=== PATIENT | male | born 1940 | race Two or more races ===

== ENCOUNTER 2017-02-18 08:47 | Inpatient (IN) | payer MEDICARE, BC ==
[2017-02-18] MEDS ORDERED: SODIUM CHLORIDE 0.9% 1000 ML INFUS.BAG IV SCH (09:30)
--- NOTE | 2017-02-18 09:37 | PDOC ---
History of Present Illness - General Chief Complaint: Syncope/Near Syncope Stated Complaint: SYNCOPE/DIZZINESS Time Seen by Provider: 02/18/17 09:12 Past History - Past Medical History Allergies/Adverse Reactions: Allergies Allergy/AdvReac Type Severity Reaction Status Date / Time No Known Allergies Allergy Verified 02/18/17 09:01 - Suicide/Smoking/Psychosocial Hx Smoking History: Unknown if ever smoked *Physical Exam - Vital Signs Last Vital Signs Temp Pulse Resp BP Pulse Ox 98.6 F 78 16 148/76 100 02/18/17 09:02 02/18/17 09:02 02/18/17 09:02 02/18/17 09:02 02/18/17 09:02
[2017-02-18] MEDS ORDERED: ONDANSETRON 4 MG/2 ML VIAL IVPB ONE (09:43)
[2017-02-18] MEDS ORDERED: ONDANSETRON 4 MG/2 ML VIAL ONE ×2 (09:52→10:42)
--- NOTE | 2017-02-18 10:00 | PDOC ---
History of Present Illness - General History Source: Patient, Spouse Exam Limitations: No Limitations - History of Present Illness Initial Comments: 02/18/17 10:00 76 y/o M with a PMHx of HTN, HLD, DM presents to the ED via EMS s/p syncopal episode this morning. Patient reports current dizziness. Patients reports that about a week ago the patient had 3 mechanical falls within an hour and hit his head. Patient did not want to go to the ER at that time. Last night, reports patient felt hot to touch. This morning, was helping the patient to the bathroom when he syncopized. Positive vomiting x1 in ED. Earlier this year, the patient was admitted to a hospital in [place] for low BP and dehydration. Patient denies chest pain, SOB, headache. Denies fever, chills. Denies diarrhea. <Quiana Villar - Last Filed: 02/18/17 11:13> <Jason Miles - Last Filed: 02/18/17 11:19> - General Chief Complaint: Syncope/Near Syncope Stated Complaint: SYNCOPE/DIZZINESS Time Seen by Provider: 02/18/17 09:12 Past History <Quiana Villar - Last Filed: 02/18/17 11:13> - Suicide/Smoking/Psychosocial Hx Smoking History: Unknown if ever smoked <Jason Miles - Last Filed: 02/18/17 11:19> - Past Medical History Allergies/Adverse Reactions: Allergies Allergy/AdvReac Type Severity Reaction Status Date / Time No Known Allergies Allergy Verified 02/18/17 09:01 Home Medications: Ambulatory Orders Allopurinol [Zyloprim -] 100 mg PO DAILY 02/18/17 Alogliptin Benzoate [Alogliptin] 12.5 mg PO DAILY 02/18/17 Gabapentin [Gralise] 600 mg PO BID 02/18/17 Glimepiride [Amaryl -] 1 mg PO DAILY 02/18/17 Insulin Glargine,Hum.rec.anlog [Supriya Schroeder] 16 unit SQ DAILY 02/18/17 Metoprolol Succinate [Toprol Xl -] 25 mg PO DAILY 02/18/17 Pioglitazone HCl [Actos] 30 mg PO DAILY 02/18/17 Simvastatin [Zocor -] 40 mg PO HS 02/18/17 Valsartan [Diovan] 80 mg PO DAILY 02/18/17 Review of Systems - Review of Systems Comments:: 02/18/17 10:01 A complete review of 10 out of 10 review of systems is taken and is negative apart from what is previously mentioned below and in the HPI. <Quiana Villar - Last Filed: 02/18/17 11:13> *Physical Exam - Vital Signs Last Vital Signs Temp Pulse Resp BP Pulse Ox 98.6 F 78 16 148/76 100 02/18/17 09:02 02/18/17 09:02 02/18/17 09:02 02/18/17 09:02 02/18/17 09:02 - Physical Exam Comments: 02/18/17 10:01 Vitals: Triage Vital signs reviewed General Appearance: no acute distress, well nourished well developed Head: Atraumatic Eyes: Pupils equal reactive round, extraocular movement intact Neck: Supple; No Nucal rigidity Chest Wall: Nontender Cardiac: Regular rate and rhythm, no murmurs, no rubs, no gallops, Lungs: Clear to auscultation bilateral, good air movement bilaterally Abdomen: Soft, non distended, normal bowel sounds, non tender to palpation Extremities: Full range of motion to all extremities, no cyanosis, clubbing, or edema Skin: Warm and dry, no rashes or lesions, no rash, no petechiae Neuro: AOX3; Cranial Nerves 2-12 grossly intact, Strength intact to all extremities, Sensation intact to all extremities, dizzy with change in position Psych: normal mood, normal affect <Quiana Villar - Last Filed: 02/18/17 11:13> - Vital Signs Last Vital Signs Temp Pulse Resp BP Pulse Ox 98.6 F 78 16 148/76 100 02/18/17 09:02 02/18/17 09:02 02/18/17 09:02 02/18/17 09:02 02/18/17 09:02 <Jason Miles - Last Filed: 02/18/17 11:19> Heart Score/ECG Review #1 02/18/17 10:05 EKG performed at 9:23 demonstrates rate of 79, rhythm of sinus, axis normal with LBBB. No T wave inversions, no ST elevations. <Quiana Villar - Last Filed: 02/18/17 11:13> ED Treatment Course - LABORATORY CBC & Chemistry Diagram: 02/18/17 10:00 02/18/17 10:00 - ADDITIONAL ORDERS Additional order review: Laboratory Results 02/18/17 09:27 POC Glucometer [id number] 02/18/17 09:27 POC Glucometer [id number] - RADIOLOGY Radiograph Interpretation: 02/18/17 10:[address] reported by Dr. Jose D Martines Impression: No CT evidence of acute intracranial pathology. Chest X-Ray reported by Dr. Ryan Whitaker Impression: No evidence of active pulmonary disease. <Quiana Villar - Last Filed: 02/18/17 11:13> - LABORATORY CBC & Chemistry Diagram: 02/18/17 10:00 02/18/17 10:00 - ADDITIONAL ORDERS Additional order review: Laboratory Results 02/18/17 09:27 POC Glucometer [id number] 02/18/17 09:27 POC Glucometer [id number] - RADIOLOGY Radiology Studies Ordered: Category Date Time Status HEAD CT (STROKE) [CT] Stat CT Scan 02/18/17 09:29 Taken CHEST X-RAY PORTABLE* [RAD] Stat Radiology 02/18/17 09:13 Completed <Jason Miles - Last Filed: 02/18/17 11:19> Medical Decision Making - Medical Decision Making 02/18/17 10:[address] Kingtson. [phone] 02/18/17 11:[address] Kingston, who will see patient and order MRI. <Quiana Villar - Last Filed: 02/18/17 11:13> - Medical Decision Making 02/18/17 11:17 76 years old with past medical history significant for hypertension diabetes high cholesterol 3 falls last week on Wednesday presents to the ED today with persistent vertigo not alleviated by rest In the emergency department labs head CT vital signs all stable despite IV fluids and Zofran and meclizine patient remains symptomatic even at rest given age and comorbidities will need observation for neurologic consultation MRI brain MRA head and neck to rule out posterior circulation/vertebral neurologic pathology <Jason Miles - Last Filed: 02/18/17 11:19> *DC/Admit/Observation/Transfer - Attestations Scribe Attestion: 02/18/17 10:02 Documentation prepared by Quiana Villar, acting as medical equipment repair technician for Jason Miles MD. <Quiana Villar - Last Filed: 02/18/17 11:13> - Discharge Dispostion Admit: Yes <Jason Miles - Last Filed: 02/18/17 11:19> Diagnosis at time of Disposition: Vertigo - Referrals Referrals: STAFF,NOT ON [Primary Care Provider] -
[2017-02-18 10:31] LABS: BASOPHIL 0.6 % (0-2.0); MCH 27.2 pg (25.7-33.7); MCHC 32.4 g/dl (32.0-35.9); MEAN CELL VOLUME 83.8 fl (80-96); PLATELET COUNT 305 K/MM3 (134-434); RDW 14.4 % (11.9-15.9); WHITE BLOOD COUNT 9.6 K/mm3 (4.0-10.0)
[2017-02-18 10:44] LABS: INR 1.35 (0.82-1.09); PROTHROMBIN TIME (PATIENT) 15.3 SEC (9.98-11.88)
[2017-02-18] MEDS ORDERED: MECLIZINE HCL 25 MG TABLET (FP) PO ONE (10:45)
[2017-02-18] MEDS ORDERED: MECLIZINE HCL 25 MG TABLET (FP) ONE (10:52)
[2017-02-18 10:57] LABS: ALBUMIN 3.2 g/dl (3.4-5.0); ANION GAP 11 (8-16); BILIRUBIN,TOTAL 0.9 mg/dL (0.2-1.0); CALCIUM 8.9 mg/dL (8.5-10.1); CO2 25 mmol/L (21-32); CREATININE 1.2 mg/dL (0.7-1.3); GLUCOSE,RANDOM 178 mg/dL (74-106); MAGNESIUM 1.9 mg/dL (1.8-2.4); SGOT/AST 10 U/L (15-37); SGPT/ALT 19 U/L (12-78); TOT PROT 6.5 g/dl (6.4-8.2)
[2017-02-18 11:00] LABS: ALK PHOS 88 U/L (45-117); CPK 64 IU/L (39-308); TROPONIN I < 0.02 ng/ml (0.00-0.05)
[2017-02-18] MEDS: VALSARTAN 80 MG TABLET (UD) PO SCH (14:48)
--- NOTE | 2017-02-18 14:56 | HP ---
CHIEF COMPLAINT: Right knee weakness, right foot pain PCP: [place] HISTORY OF PRESENT ILLNESS: 76 year-old male with a PMH significant for HTN, HLD, and IDDM, presented to the ED after experiencing weakness in his right leg this morning. Patient is a resident of [place]. One week ago he flew from [place] to [place], a 2.5 hour flight, followed by a 1-hour car trip. While visiting family, patient took a walk outdoors at night in a poorly lit area wearing flip flops. He tripped and fell twice (witnessed by his son) and both times struck his right knee, right foot, right toe. He returned to the house and was walking into the kitchen and missed a step. He fell for the third time, again a mechanical fall witnessed by family members. Following the three falls patient has had pain in his right foot with weight-bearing. He did not seek medical attention. Three days ago, the patient drove from [place] to [place], a 2.5 hour car trip. This morning, as patient got up to go to the bathroom, his right knee "buckled" and he went down to the floor. Patient was awake the entire time. He did not pass out. He was not dizzy or lightheaded. There was no syncope or near syncope. Patient denies chest pain, palpitations, SOB, OAKES, orthopnea, or lower extremity edema. He denies any history of blood clots. He denies headache, n/v/d /c. He denies fever, sweats, chills. At no time does patient report striking his head or losing consciousness. ER course was notable for: (1) CT head: unremarkable for acute process Recent Travel: Yes, as above PAST MEDICAL HISTORY: Hypertension Hyperlipidemia IDDM PAST SURGICAL HISTORY: Social History: Smoking: Alcohol: Drugs: Family History: Allergies No Known Allergies Allergy (Verified 02/18/17 09:01) HOME MEDICATIONS: Home Medications Medication Instructions Recorded Allopurinol [Zyloprim -] 100 mg PO DAILY 02/18/17 Alogliptin Benzoate [Alogliptin] 12.5 mg PO DAILY 02/18/17 Gabapentin [Gralise] 600 mg PO BID 02/18/17 Glimepiride [Amaryl -] 1 mg PO DAILY 02/18/17 Insulin Glargine,Hum.rec.anlog 16 unit SQ DAILY 02/18/17 [Supriya Schroeder] Metoprolol Succinate [Toprol Xl -] 25 mg PO DAILY 02/18/17 Pioglitazone HCl [Actos] 30 mg PO DAILY 02/18/17 Simvastatin [Zocor -] 40 mg PO HS 02/18/17 Valsartan [Diovan] 80 mg PO DAILY 02/18/17 REVIEW OF SYSTEMS CONSTITUTIONAL: Absent: fever, chills, diaphoresis, generalized weakness, malaise, loss of appetite, weight change HEENT: Absent: rhinorrhea, nasal congestion, throat pain, throat swelling, difficulty swallowing, mouth swelling, ear pain, eye pain, visual changes CARDIOVASCULAR: Absent: chest pain, syncope, palpitations, irregular heart rate, lightheadedness , peripheral edema RESPIRATORY: Absent: cough, shortness of breath, dyspnea with exertion, orthopnea, wheezing, stridor, hemoptysis GASTROINTESTINAL: Absent: abdominal pain, abdominal distension, nausea, vomiting, diarrhea, constipation, melena, hematochezia GENITOURINARY: Absent: dysuria, frequency, urgency, hesitancy, hematuria, flank pain, genital pain MUSCULOSKELETAL: Present: right knee pain, right foot pain s/p falls Absent: myalgia, arthralgia, joint swelling, back pain, neck pain SKIN: Absent: rash, itching, pallor HEMATOLOGIC/IMMUNOLOGIC: Absent: easy bleeding, easy bruising, lymphadenopathy, frequent infections ENDOCRINE: Absent: unexplained weight gain, unexplained weight loss, heat intolerance, cold intolerance NEUROLOGIC: Absent: headache, focal weakness or paresthesias, dizziness, unsteady gait, seizure, mental status changes, bladder or bowel incontinence PSYCHIATRIC: Absent: anxiety, depression, suicidal or homicidal ideation, hallucinations. PHYSICAL EXAMINATION Vital Signs - 24 hr 02/18/17 11:41 Pulse Rate [ 72 Apical] Respiratory 16 Rate Blood Pressure 147/72 [Left Arm] O2 Sat by Pulse 98 Oximetry (%) GENERAL: Awake, alert, and fully oriented, in no acute distress. HEAD: Normal with no signs of trauma. EYES: Pupils equal, round and reactive to light, extraocular movements intact, sclera anicteric, conjunctiva clear. No ptosis. EARS, NOSE, THROAT: Ears normal, nares patent, oropharynx clear without exudates. Moist mucous membranes. NECK: Normal range of motion, supple without lymphadenopathy, JVD, or masses. LUNGS: Breath sounds equal, clear to auscultation bilaterally. No wheezes, and no crackles. No accessory muscle use. HEART: Regular rate and rhythm, normal S1 and S2 without murmur, rub or gallop. ABDOMEN: Soft, nontender, not distended, normoactive bowel sounds, no guarding, no rebound, no masses. No hepatomegaly or splenomegaly. MUSCULOSKELETAL: Normal range of motion at all joints. No bony deformities or tenderness. No CVA tenderness. UPPER EXTREMITIES: 2+ pulses, warm, well-perfused. No cyanosis. No clubbing. No peripheral edema. LOWER EXTREMITIES: Right patella hypermobility; RLE 1+ edema from knee to toes; LLE no edema; both extremities warm, well-perfused. No calf tenderness. NEUROLOGICAL: Cranial nerves II-XII intact. Normal speech. Gait not observed. ASSESSMENT/PLAN: 76 year-old male with a PMH significant for HTN, HLD, and IDDM. Presents with pain to right knee and right foot s/p mechanical falls and with one episode of right knee weakness. Right lower extremity pain and weakness --s/p three mechanical falls --patellar hypermobility on exam --ordered xrays right knee, tib/fib, ankle/foot RLE edema and pain --in setting of recent prolonged travel --US b/l LEs pending Hypertension --continue valsartan, Toprol XL Hyperlipidemia --continue statin IDDM --Levemir 10U BID --Novolog sliding scale coverage F/E/N Fluids: PO intake adequate Electrolytes: replete as indicated Nutrition: diabetic, low sodium DVT prophylaxis: subq heparin Physical therapy eval Dispo: requires continued observation. Full code. Visit type - Emergency Visit Emergency Visit: Yes ED Registration Date: 02/18/17 Care time: The patient presented to the Emergency Department on the above date and was hospitalized for further evaluation of their emergent condition. - New Patient This patient is new to me today: Yes Date on this admission: 02/18/17 - Critical Care Critical Care patient: No
--- NOTE | 2017-02-18 14:57 | EKG ---
Test Reason : Blood Pressure : / mmHG Vent. Rate : 079 BPM Atrial Rate : 079 BPM P-R Int : 164 ms QRS Dur : 150 ms QT Int : 426 ms P-R-T Axes : 062 005 129 degrees QTc Int : 488 ms SINUS RHYTHM WITH OCCASIONAL PREMATURE VENTRICULAR COMPLEXES LEFT BUNDLE BRANCH BLOCK ABNORMAL ECG NO PREVIOUS ECGS AVAILABLE Confirmed by COLBY DELGADILLO MD ([id number]) on 02/18/2017 2:57:10 PM Referred By: Confirmed By:COLBY DELGADILLO MD
[2017-02-18] MEDS ORDERED: ASPIRIN 325 MG ENTERIC COATED TABLET (FP) PO ONE (15:00)
[2017-02-18] MEDS ORDERED: ASPIRIN 325 MG TABLET ONE (15:23)
--- NOTE | 2017-02-18 16:12 | CON.CARD ---
Cardiology Consult (text) - Consultation Consultation Note: 76 y/o M with a PMHx of HTN, HLD, DM presents to the ED via EMS s/p syncopal episode this morning. Patient reports current dizziness. Patients reports that about a week ago the patient had 3 mechanical falls within an hour and hit his head. Patient did not want to go to the ER at that time. Last night, reports patient felt hot to touch. This morning, was helping the patient to the bathroom when he syncopized. Positive vomiting x1 in ED. Earlier this year, the patient was admitted to a hospital in [place] for low BP and dehydration. Patient denies chest pain, SOB, headache. Denies fever, chills. Denies diarrhea. Ambulatory Orders Allopurinol [Zyloprim -] 100 mg PO DAILY 02/18/17 Alogliptin Benzoate [Alogliptin] 12.5 mg PO DAILY 02/18/17 Gabapentin [Gralise] 600 mg PO BID 02/18/17 Glimepiride [Amaryl -] 1 mg PO DAILY 02/18/17 Insulin Glargine,Hum.rec.anlog [Tousrinatho Solostar] 16 unit SQ DAILY 02/18/17 Metoprolol Succinate [Toprol Xl -] 25 mg PO DAILY 02/18/17 Pioglitazone HCl [Actos] 30 mg PO DAILY 02/18/17 Simvastatin [Zocor -] 40 mg PO HS 02/18/17 Valsartan [Diovan] 80 mg PO DAILY 02/18/17 Current Medications Allopurinol (Zyloprim -) 100 mg PO DAILY [facility] Atorvastatin Calcium (Lipitor -) 80 mg PO HS [facility] Gabapentin (Neurontin -) 600 mg PO BID [facility] Heparin Sodium (Porcine) (Heparin -) 5,000 unit SQ TID [facility] Insulin Aspart (Novolog Vial Sliding Scale -) 1 vial SQ ACHS [facility] PRN Reason: Protocol Insulin Detemir (Levemir Vial) 10 units SQ BID@0700,2200 [facility] Metoprolol Succinate (Toprol Xl -) 25 mg PO DAILY [facility] Valsartan (Diovan -) 80 mg PO DAILY [facility] Last Admin: 02/18/17 14:48 Dose: 80 mg Vital Signs - 24 hr 02/18/17 02/18/17 02/18/17 09:00 09:02 09:50 Temperature 98.6 F Pulse Rate 78 Pulse Rate [ Apical] Pulse Rate [ 79 Left side Sitting] Pulse Rate [ 90 Left side Standing] Pulse Rate [ 72 Left side Supine] Respiratory 16 Rate Blood Pressure 148/76 Blood Pressure [Left Arm] Blood Pressure 104/82 [Left side Sitting] Blood Pressure 162/81 [Left side Standing] Blood Pressure 74/39 [Left side Supine] O2 Sat by Pulse 100 99 Oximetry (%) 02/18/17 02/18/17 11:41 15:47 Temperature Pulse Rate Pulse Rate [ 72 95 H Apical] Pulse Rate [ Left side Sitting] Pulse Rate [ Left side Standing] Pulse Rate [ Left side Supine] Respiratory 16 16 Rate Blood Pressure Blood Pressure 147/72 142/58 [Left Arm] Blood Pressure [Left side Sitting] Blood Pressure [Left side Standing] Blood Pressure [Left side Supine] O2 Sat by Pulse 98 95 Oximetry (%) Intake & Output 02/16/17 02/17/17 02/18/17 02/19/17 07:59 07:59 07:59 07:59 Intake Total 2803 Balance 2803 Weight 206 lb CBC, BMP 02/18/17 10:00 02/18/17 10:00 Laboratory Tests 02/18/17 02/18/17 02/18/17 10:00 10:00 10:00 INR 1.35 H Lactic Acid 1.0 Magnesium 1.9 Total Bilirubin 0.9 AST 10 L Alkaline Phosphatase 88 Troponin I < 0.02 Albumin 3.2 L
[2017-02-18] MEDS: INSULIN SLIDING SCALE (NOVOLOG) 1 VIAL SQ SCH ×2 (17:01→22:01)
--- NOTE | 2017-02-18 17:31 | CON.NEURO ---
Consult - Smoking History Smoking history: Unknown if ever smoked Home Medications - Allergies Allergies/Adverse Reactions: Allergies Allergy/AdvReac Type Severity Reaction Status Date / Time No Known Allergies Allergy Verified 02/18/17 09:01 - Home Medications Home Medications: Ambulatory Orders Allopurinol [Zyloprim -] 100 mg PO DAILY 02/18/17 Alogliptin Benzoate [Alogliptin] 12.5 mg PO DAILY 02/18/17 Gabapentin [Gralise] 600 mg PO BID 02/18/17 Glimepiride [Amaryl -] 1 mg PO DAILY 02/18/17 Insulin Glargine,Hum.rec.anlog [Toujeo Solostar] 16 unit SQ DAILY 02/18/17 Metoprolol Succinate [Toprol Xl -] 25 mg PO DAILY 02/18/17 Pioglitazone HCl [Actos] 30 mg PO DAILY 02/18/17 Simvastatin [Zocor -] 40 mg PO HS 02/18/17 Valsartan [Diovan] 80 mg PO DAILY 02/18/17 Physical Exam-Neuro Vital Signs: Vital Signs Temperature 98.6 F 02/18/17 09:02 Pulse Rate 95 H 02/18/17 15:47 Respiratory Rate 16 02/18/17 15:47 Blood Pressure 142/58 02/18/17 15:47 O2 Sat by Pulse Oximetry (%) 95 02/18/17 15:47 Labs: INR, PTT INR 1.35 (0.82-1.09) H 02/18/17 10:00 Assessment/Plan cc episode of passing out and feeling vertigo sensation whole morning today 76 year old male history of dm, htn hyperlipidemia. He lives in [place] and [place] and recently were in [place]. He felt that his leg were giving out and he passed out. He was did not complain of hitting his head. He denies any weakness, dysphagia , dysarthria or diplopia. Patient also complain of right leg edema and knee swelling after a fall. He has history of low back pain but he denies any worsening of back pain recently. His felt that he passed out and he was confused whole morning and now after three hours being in hospital . He is back to himself. PAST MEDICAL HISTORY: Hypertension Hyperlipidemia IDDM HOME MEDICATIONS: Home Medications Medication Instructions Recorded Allopurinol [Zyloprim -] 100 mg PO DAILY 02/18/17 Alogliptin Benzoate [Alogliptin] 12.5 mg PO DAILY 02/18/17 Gabapentin [Gralise] 600 mg PO BID 02/18/17 Glimepiride [Amaryl -] 1 mg PO DAILY 02/18/17 Insulin Glargine,Hum.rec.anlog 16 unit SQ DAILY 02/18/17 [Toujedeisi Solostar] Metoprolol Succinate [Toprol Xl -] 25 mg PO DAILY 02/18/17 Pioglitazone HCl [Actos] 30 mg PO DAILY 02/18/17 Simvastatin [Zocor -] 40 mg PO HS 02/18/17 Valsartan [Diovan] 80 mg PO DAILY 02/18/17 REVIEW OF SYSTEMS reviewed in chart Neurological Examination Alert and oriented x 3 he is hard of hearing eomi and no face asymmetry , pupils are reactive there is right knee swelling seen there is pain on moving right knee and limited exam but no obvious weakness no sensory loss reflex are diminished generalized Assessment- Episode of fall and one episode of syncope ? unlikely to seizures or stroke Plan --would do mri to rule out cerebellar lesion and stroke -- Physical Therapy for vestibular rehab --- Tele for possible syncope work up Thanks for consult Marshall Kingston MD
[2017-02-18] MEDS ORDERED: LORazepam 2 MG/ML SDV VIAL IVPUSH ONE (19:46)
[2017-02-18] MEDS ORDERED: ATORVASTATIN CA 80 MG TABLET (FP) PO SCH (22:00)
[2017-02-18] MEDS: HEPARIN NA (PORCINE) 5,000 UNITS/ML 1ML VIAL SQ SCH (22:00)
[2017-02-18] MEDS: ATORVASTATIN CA 40 MG TABLET (FP) PO SCH (22:00)
[2017-02-18] MEDS: GABAPENTIN 300 MG CAPSULE (FP) PO SCH (22:00)
[2017-02-18] MEDS: INSULIN DETEMIR 100 UNITS/ML MDV SQ SCH (22:01)
[2017-02-19 01:06] VITALS: BMI 29.7
[2017-02-19] MEDS: INSULIN DETEMIR 100 UNITS/ML MDV SQ SCH ×2 (06:26→22:22)
[2017-02-19] MEDS: INSULIN SLIDING SCALE (NOVOLOG) 1 VIAL SQ SCH ×4 (06:26→22:22)
[2017-02-19] MEDS: HEPARIN NA (PORCINE) 5,000 UNITS/ML 1ML VIAL SQ SCH (06:26)
[2017-02-19 07:37] LABS: INR 1.24 (0.82-1.09)
[2017-02-19 07:38] LABS: ACTIVATED PTT 28.8 SECONDS (26.9-34.4)
[2017-02-19 08:04] LABS: EOSINOPHIL 1.9 % (0-4.5); MCH 27.4 pg (25.7-33.7); MCHC 32.7 g/dl (32.0-35.9); MEAN CELL VOLUME 83.8 fl (80-96); NEUTROPHILS 66.1 % (42.8-82.8); PLATELET COUNT 291 K/MM3 (134-434); RDW 14.2 % (11.9-15.9); WHITE BLOOD COUNT 9.3 K/mm3 (4.0-10.0)
[2017-02-19] MEDS ORDERED: LORazepam 2 MG/ML SDV VIAL ONE (08:31)
[2017-02-19] MEDS: METOPROLOL SUCCINATE 25 MG TAB.SR.24H (FP) PO SCH (09:48)
[2017-02-19] MEDS: GABAPENTIN 300 MG CAPSULE (FP) PO SCH ×2 (09:48→22:22)
[2017-02-19] MEDS: VALSARTAN 80 MG TABLET (UD) PO SCH (09:48)
[2017-02-19] MEDS: ALLOPURINOL 100 MG TABLET (FP) PO SCH (09:48)
[2017-02-19] MEDS ORDERED: FLU VACCINE QUAD 60 MCG/0.5 ML (MDV 17-18) IM ONE (10:00)
--- NOTE | 2017-02-19 10:33 | PN ---
Physical Exam: SUBJECTIVE: Patient seen and examined at the bedside. Informed by primary nurse that patient has a positive MRI. 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 Kingston who advised neurosurgery to be called Called placed into Dr. Sukumar Figueroa office [phone] who is currently in surgery, awaiting call back Stroke protocol in place 1349: Call back received from Dr. Figueroa, case discussed. Brain MRI reviewed. As per MD, patient is not a surgical candidate. Vital Signs Period Temp Pulse Resp BP Sys/Baker Pulse Ox Last 24 Hr 97.4 F-100.3 F 72-95 16-20 116-147/54-77 94-98 GENERAL: The patient is awake, alert, and fully oriented, in no acute distress. HEAD: Normal with no signs of trauma. EYES: PERRL, extraocular movements intact, sclera anicteric, conjunctiva clear. No ptosis. ENT: Ears normal, nares patent, oropharynx clear without exudates, moist mucous membranes. NECK: Trachea midline, full range of motion, supple. LUNGS: Breath sounds equal, clear to auscultation bilaterally, no wheezes, no crackles, no accessory muscle use. HEART: Regular rate and rhythm ABDOMEN: Soft, nontender, nondistended, normoactive bowel sounds, no guarding, no rebound, no hepatosplenomegaly, no masses. NEUROLOGICAL: slurred speech, left sided upper weakness 4/5 PSYCH: Normal mood, normal affect. LOWER EXT: pain to right knee and right foot s/p mechanical falls and with one episode of right knee weakness s/p multiple falls at home Laboratory Results - last 24 hr 02/18/17 02/18/17 02/18/17 19:45 21:40 21:54 WBC RBC Hgb Hct MCV MCH MCHC RDW Plt Count MPV Neutrophils % Lymphocytes % Monocytes % Eosinophils % Basophils % PT with INR INR PTT (Actin FS) POC Glucometer 253 Troponin I < 0.02 Cancelled 02/19/17 02/19/17 02/19/17 05:55 06:45 06:45 WBC 9.3 RBC 3.94 L Hgb 10.8 L Hct 33.0 L MCV 83.8 MCH 27.4 MCHC 32.7 RDW 14.2 Plt Count 291 MPV 8.0 Neutrophils % 66.1 Lymphocytes % 22.6 D Monocytes % 8.4 Eosinophils % 1.9 D Basophils % 1.0 PT with INR 14.00 H INR 1.24 H PTT (Actin FS) 28.8 POC Glucometer 104 Troponin I Active Medications Generic Name Dose Route Start Last Admin Trade Name Guy PRN Reason Stop Dose Admin Allopurinol 100 mg 02/19/17 10:00 02/19/17 09:48 Zyloprim - PO 100 mg DAILY HAILE Administration Atorvastatin Calcium 40 mg 02/18/17 22:00 02/18/17 22:00 Lipitor - PO 40 mg HS HAILE Administration Gabapentin 600 mg 02/18/17 22:00 02/19/17 09:48 Neurontin - PO 600 mg BID HAILE Administration Insulin Aspart 1 vial 02/18/17 16:30 02/19/17 06:26 Novolog Vial Sliding Scale - SQ Not Given ACHS [facility] Protocol Insulin Detemir 10 units 02/18/17 22:00 02/19/17 06:26 Levemir Vial SQ Not Given BID@0700,2200 HAILE Lorazepam 2 mg 02/19/17 12:00 Ativan Injection - IVPUSH 02/19/17 12:01 ONCE ONE Metoprolol Succinate 25 mg 02/19/17 10:00 02/19/17 09:48 Toprol Xl - PO 25 mg DAILY HAILE Administration Valsartan 80 mg 02/18/17 14:15 02/19/17 09:48 Diovan - PO 80 mg DAILY HAILE Administration ASSESSMENT/PLAN: Patient is a76 year old with a significant past medical history of hypertension , hyperlipidemia and diabetes mellitus. He was brought into the ED after experiencing weakness in his right leg. Patient was reported to have fallen multiple times at home without any LOC, dizziness or lightheadedness. No syncope or near syncope reported. Patient denies chest pain, palpitations, SOB , OAKES, orthopnea, or lower extremity edema. He denies headache, nausea or vomiting. He denies fever, sweats, chills. Patient denies hitting his head or losing consciousness with the multiple falls. Brain MRI 02/19/2017: acute 4 x 1.3 cm right cerebeller uziel infarct noted superiorly with trace amt of Neurology: Acute right cerebeller infarct, as shown on above brain MRI Stroke protocol initiated Swallow eval ordered, lipid panel, will hold off on ASA since for petechial blood is seen on brain MRI, will start ASA as per neuro Heparin on hold secondary to acute petechial blood on MRI Physical therapy ordered, Swallow and speech evaluation Spoke to neurosurgery who reviewed Brain MRI, no surgical interventions Monitor and control blood pressures in the setting of acute cerebellar infarct Carotid ultrasound and echo ordered On Lipitor 40mg daily Cardiology consulted Cardiology: Hypertension, chronic Control BP in setting of acute cerebellar infarct On compliance monitor On Metoprolol 25mg daily, Diovan 80mg daily ASA start as per neurology Endocrine: Diabetes Mellitus, chronin Monitor BGMs, Hmga1c in a.m. Dysphagia diabetic diet F.E.N. Fluids: Tolerating PO, swallow eval Electrolytes: monitor Nutrition, dysphagia Prophylaxis DVT: SCD GI: Protonix Disposition. Will need to be converted to inpatient status for his acute emergency condition. full code. Visit type - Emergency Visit Emergency Visit: Yes ED Registration Date: 02/19/17 Care time: The patient presented to the Emergency Department on the above date and was hospitalized for further evaluation of their emergent condition. - New Patient This patient is new to me today: Yes Date on this admission: 02/19/17 - Critical Care Critical Care patient: No - Discharge Referral Referred to [facility] Med P.C.: No
[2017-02-19 11:44] LABS: ANION GAP 5 (8-16); CO2 29 mmol/L (22-28); CREATININE 1.4 mg/dl (0.6-1.3); GLUCOSE,RANDOM 104 mg/dl (74-106); TOT PROT 6.1 g/dl (6.4-8.3)
[2017-02-19 11:45] LABS: ALBUMIN 2.8 g/dl (3.5-5.0); ALK PHOS 83 U/L (32-92); BILIRUBIN,TOTAL 0.6 mg/dl (0.2-1.0); SGOT/AST 13 U/L (10-42); SGPT/ALT 18 U/L (10-40)
--- NOTE | 2017-02-19 11:54 | CONSULT ---
Admitting History and Physical - Primary Care Physician PCP: Marlene Brar - Admission History of Present Illness: Pt admitted following multple mechanical falls, with vertigo. 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 Pt with h/o severely HOOPA, bilaterally aided, with excellent speech production. History Source: Patient, Medical Record Limitations to Obtaining History: No Limitations, Other (HOOPA. 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 Congenital.), Both Hearing Aide: Yes With Patient: Yes Speech Evaluation - Communication Primary Language: MALAY Communication: Yes: Within Normal Limits, Hearing Deficit Oral Expression Ability: Yes: No Impairment - Speech Production Able to Make Needs Known: Yes: WNL Intelligibility: Yes: WNL - Speech Characteristics Voice Loudness: Normal Voice Pitch: Yes: Mildly High (likely secondary to hearing deficit) Voice Phonatory-based Quality: Yes: Normal Speech Pattern: Normal Speech Clarity: < 100% Nasal Resonance: Normal Articulation: Yes: Precise - Language/Auditory Comprehension Follows: Yes: 2 Stage Simple Commands Observation: Benefits from Slow Speech: Yes (Allow pt to see your face/lips, while speaking slowly for best communication.), Benefits from Increased Volume of Speech: Yes - Language/Verbal Expression Able to Respond to Simple Queries: Yes: WNL Able to Communicate Wants and Needs: Yes: WNL Functional Communication Status: Yes: WNL - 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 Memory: Yes: WNL Short Term Memory: Yes: WNL - Swallow Evaluation/Bedside Assessment Current Nutritional Intake: Regular (Pt reports he is receiving "mushy" food.) Oral Secretions: Yes: WFL Dentition: Yes: Adequate Facial Symmetry at Rest: Facial Droop Right (mild) Facial Symmetry on Retraction: Symmetrical Facial Movement: Controlled Against Resistance Opening: Normal Against Resistance Closing: Normal Pucker Lips: Normal Smile: Normal Lingual Movement: Normal, Symmetric Lingual Speed of Movement: Normal Lingual Movement Strgth Against Opposition: Normal Lingual Movement Characteristics: Normal Velopharyngeal Movement: Normal Laryngeal Elevation: WFL Laryngeal Movement: Able to Palpate Rate of Intake: WFL Bolus Size: WFL Labial Seal: WFL Chewing: WFL Oral Prep Time: WFL A-P Transit: WFL Pocketing: None Timing of Swallow: WFL Coughing/Throat Clear: No Change in Voice: No Recommendations - Speech Evaluation, Impression/Plan Impression: Speech production at baseline. No ataxic dysarthria noted. 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 Excellent ability to lip read. Swallowing overtly intact. - Disposition Discharge to: [facility] - Dysphagia Impressions/Plan Swallowing Skills: WFL Dysphagia Impressions: No Impairment *Silent aspiration: cannot be R/O at bedside Recommendations: Other (Allow pt to see your face/lips, while speaking slowly for best communication, to maximize lip reading skills.) - Recommendations Diet Consistency: Regular Medication Administration: Whole with water Liquids: Thin Liquids
[2017-02-19 12:02] LABS: CHOLESTEROL 96 mg/dL (50-200)
--- NOTE | 2017-02-19 15:09 | PN ---
Progress Note (short form) - Note Progress Note: cc episode of passing out and feeling vertigo sensation whole morning today 76 year old male history of dm, htn hyperlipidemia. He lives in [place] and visiting [place] and recently were in [place]. He felt that his leg were giving out and he passed out. He was did not complain of hitting his head. He denies any weakness, dysphagia , dysarthria or diplopia. Patient also complain of right leg edema and knee swelling after a fall. He has history of low back pain but he denies any worsening of back pain recently. His felt that he passed out and he was confused whole morning and now after three hours being in hospital . he had mri of brain showed right cerebellar stroke and small petechial hemorrhage was seen PAST MEDICAL HISTORY: Hypertension Hyperlipidemia IDDM Neurological Examination Alert and oriented x 3 he is hard of hearing eomi and no face asymmetry , pupils are reactive there is right knee swelling seen there is pain on moving right knee and limited exam but no obvious weakness no sensory loss there is mild dysmetria seen on right upper extremity ( ftn testing reflex are diminished generalized Assessment- Right cerebellar stroke with small petechial hemrrhage, bp under control and no evidence of raised ICT Plan --hold aspirin due to petchial hemorrhage - hold sq heparin and use EDWAR instead -carotid ultrasound adn echo, continue tele monitoring stroke education continue statin bp medication , bp is stable PT , Speech therapy consult appreciated. continue to follow ,please feel free to call me if you have any question Marshall Kingston MD
[2017-02-19] MEDS: ATORVASTATIN CA 40 MG TABLET (FP) PO SCH (22:22)
[2017-02-20] MEDS: INSULIN SLIDING SCALE (NOVOLOG) 1 VIAL SQ SCH ×4 (06:38→21:49)
[2017-02-20] MEDS: INSULIN DETEMIR 100 UNITS/ML MDV SQ SCH ×2 (06:44→21:48)
[2017-02-20 07:47] LABS: BASOPHIL 1.2 % (0-2.0); EOSINOPHIL 4.3 % (0-4.5); MCH 27.8 pg (25.7-33.7); MCHC 32.9 g/dl (32.0-35.9); MEAN CELL VOLUME 84.5 fl (80-96); MEAN PLT VOLUME 8.5 fl (7.5-11.1); NEUTROPHILS 63.6 % (42.8-82.8); PLATELET COUNT 304 K/MM3 (134-434); RDW 13.8 % (11.9-15.9); WHITE BLOOD COUNT 7.4 K/mm3 (4.0-10.0)
[2017-02-20 08:34] LABS: ALBUMIN 2.8 g/dl (3.4-5.0); ALK PHOS 80 U/L (45-117); ANION GAP 8 (8-16); BILIRUBIN,TOTAL 0.7 mg/dL (0.2-1.0); CALCIUM 8.8 mg/dL (8.5-10.1); CO2 25 mmol/L (21-32); CREATININE 1.2 mg/dL (0.7-1.3); GLUCOSE,RANDOM 120 mg/dL (74-106); MAGNESIUM 1.9 mg/dL (1.8-2.4); SGOT/AST 16 U/L (15-37); SGPT/ALT 20 U/L (12-78)
[2017-02-20] MEDS: GABAPENTIN 300 MG CAPSULE (FP) PO SCH ×2 (09:18→21:48)
[2017-02-20] MEDS: METOPROLOL SUCCINATE 25 MG TAB.SR.24H (FP) PO SCH (09:18)
[2017-02-20] MEDS: ALLOPURINOL 100 MG TABLET (FP) PO SCH (09:18)
[2017-02-20] MEDS: VALSARTAN 80 MG TABLET (UD) PO SCH (09:18)
--- NOTE | 2017-02-20 10:28 | PN ---
Progress Note (short form) - Note Progress Note: episode of passing out and feeling vertigo sensation whole morning today 76 year old male history of dm, htn hyperlipidemia. He lives in [place] and visiting [place] and recently were in [place]. He felt that his leg were giving out and he passed out. He was did not complain of hitting his head. He denies any weakness, dysphagia , dysarthria or diplopia. Patient also complain of right leg edema and knee swelling after a fall. He has history of low back pain but he denies any worsening of back pain recently. His felt that he passed out and he was confused whole morning and now after three hours being in hospital . he had mri of brain showed right cerebellar stroke and small petechial hemorrhage was seen . he has bene stable no new complain and had carotid ultrasound done today. PAST MEDICAL HISTORY: Hypertension Hyperlipidemia IDDM Neurological Examination Alert and oriented x 3 he is have hearing difficulty eomi and no face asymmetry , pupils are reactive there is right knee swelling seen there is pain on moving right knee and limited exam but no obvious weakness no sensory loss there is mild dysmetria seen on right upper extremity ( ftn testing reflex are diminished generalized Assessment- Right cerebellar stroke with small petechial hemrrhage, bp under control and no evidence of raised ICT , just had carotid ultrasound done Plan --hold aspirin due to petchial hemorrhage - hold sq heparin and use EDWAR instead -carotid ultrasound pending, would do repeat ct head stroke education continue statin bp medication , bp is stable PT , continue to follow ,please feel free to call me if you have any question Marshall Kingston MD
--- NOTE | 2017-02-20 13:05 | PN ---
Progress Note (short form) - Note Progress Note: currently asymptomatic. denies CP, SOB, fever, chills, N/V/C/D Current Medications Generic Name Dose Route Start Last Admin Trade Name Guy PRN Reason Stop Dose Admin Allopurinol 100 mg 02/19/17 10:00 02/20/17 09:18 Zyloprim - PO 100 mg DAILY HAILE Administration Atorvastatin Calcium 40 mg 02/18/17 22:00 02/19/17 22:22 Lipitor - PO 40 mg HS HAILE Administration Gabapentin 600 mg 02/18/17 22:00 02/20/17 09:18 Neurontin - PO 600 mg BID HAILE Administration Insulin Aspart 1 vial 02/18/17 16:30 02/20/17 12:00 Novolog Vial Sliding Scale - SQ 2 units ACHS HAILE Administration Protocol Insulin Detemir 10 units 02/18/17 22:00 02/20/17 06:44 Levemir Vial SQ 10 units BID@0700,2200 HAILE Administration Lorazepam 2 mg 02/19/17 12:00 Ativan Injection - IVPUSH 02/19/17 12:01 ONCE ONE Metoprolol Succinate 25 mg 02/19/17 10:00 02/20/17 09:18 Toprol Xl - PO 25 mg DAILY HAILE Administration Valsartan 80 mg 02/18/17 14:15 02/20/17 09:18 Diovan - PO 80 mg DAILY HAILE Administration Last Vital Signs Temp Pulse Resp BP Pulse Ox 99.0 F 81 20 130/69 96 02/20/17 07:33 02/20/17 07:33 02/20/17 07:33 02/20/17 07:33 02/20/17 07:29 General NAD, TULALIP CV S1 S2 RRR no murmur/rub/gallop Lungs CTA B/L no wheezing/rales/rhonchi Abdomen soft NT/ND Extremities no pedal edema Neuro CN grossly intact. sensation grossly intact. strength equal in all 4 extremities. no pronator drift, no dysmetria no dysdakinesia +ataxic gait Assessment and Plan: 76 year old with a significant past medical history of hypertension, hyperlipidemia and diabetes mellitus came to the ER with RLE weakness and dizzyness was found to have an acute R cerebellar infarct with hemorrhagic conversion. 1. Acute R cerebellar infarct- no neurological deficits other than sight ataxia. repeat head CT shows no change in 4 x1.3 cm hemorrhagic infarct. as per neurosurgery no intervention. carotid doppler negative. echo WNL. will need 5- 7days of monitoring. will cont to hold asa. on statin. PT and speech therapy. tight BP control. 2. PVC on monitor- pt having multiple PVC. will cont cardio. EKG +LBBB (old per ) 3. HTN- controlled. cont arb, metoprolol 4. DM- hold oral agents. cont iss, bgm 5. DVT ppx- SCD. hold pharmacologic intervention Visit type - Emergency Visit Emergency Visit: Yes ED Registration Date: 02/19/17 Care time: The patient presented to the Emergency Department on the above date and was hospitalized for further evaluation of their emergent condition. - New Patient This patient is new to me today: Yes Date on this admission: 02/20/17 - Critical Care Critical Care patient: No - Discharge Referral Referred to [facility] Med P.C.: No
--- NOTE | 2017-02-20 16:15 | CON.CARD ---
Consult Consult Specialty:: cardiology Reason for Consultation:: syncope; PVCs - History of Present Illness Chief Complaint: Pt AQ&Ox3; asymptomatic History of Present Illness: 76 y/o M (born in the [place]; parents from [place]), with a PMHx of HTN, HLD , DM, congenital bilateral hearing loss, gout, who presents to the ED via EMS s/ p syncopal episode this morning. Patient reports current dizziness. Patients reports that about a week ago the patient had 3 mechanical falls within an hour and hit his head. Patient did not want to go to the ER at that time. Last night, reports patient felt hot to touch. This morning, was helping the patient to the bathroom when he syncopized. Pt says he realized the room was spinning and asked his to help; she kept him from falling and hitting his head. Positive vomiting x1 in ED. Earlier this year, the patient was admitted to a hospital in [place] for low BP and dehydration. Patient denies chest pain, SOB, headache. Denies fever, chills. Denies diarrhea. Pt walks about 4 blocks a few times a week. He denies having any heart history, though he had a stress MIBI in 2001 that reportedly showed "clear" coronary arteries, and another stress test (was taken off the treadmill, and given ? dobutamine) 1-2 years ago. 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 Cardio/Vascular: Yes: HTN Pulmonary: No: Asthma, COPD Psych: No: Anxiety, Depression - Past Surgical History Additional Surgical History: angiography of the brain in 2001 - Alcohol/Substance Use Hx Alcohol Use: No - Smoking History Smoking history: Never smoked - Social History Usual Living Arrangement: With Spouse Home Medications - Allergies Allergies/Adverse Reactions: Allergies Allergy/AdvReac Type Severity Reaction Status Date / Time No Known Allergies Allergy Verified 02/18/17 09:01 - Home Medications Home Medications: Ambulatory Orders Allopurinol [Zyloprim -] 100 mg PO DAILY 02/18/17 Alogliptin Benzoate [Alogliptin] 12.5 mg PO DAILY 02/18/17 Gabapentin [Gralise] 600 mg PO BID 02/18/17 Glimepiride [Amaryl -] 1 mg PO DAILY 02/18/17 Insulin Glargine,Hum.rec.anlog [Tousrinatho Solostar] 16 unit SQ DAILY 02/18/17 Metoprolol Succinate [Toprol Xl -] 25 mg PO DAILY 02/18/17 Pioglitazone HCl [Actos] 30 mg PO DAILY 02/18/17 Simvastatin [Zocor -] 40 mg PO HS 02/18/17 Valsartan [Diovan] 80 mg PO DAILY 02/18/17 Family Disease History - Family Disease History Family Disease History: Heart Disease: Father, Mother ("my parents had heart conditions when they both were very old") Review of Systems - Review of Systems Constitutional: reports: No Symptoms Eyes: reports: No Symptoms HENT: reports: Hearing Loss Neck: reports: No Symptoms Cardiovascular: reports: No Symptoms Respiratory: reports: No Symptoms Gastrointestinal: reports: No Symptoms Genitourinary: reports: No Symptoms Breasts: reports: No Symptoms Reported Musculoskeletal: reports: No Symptoms Integumentary: reports: No Symptoms Neurological: reports: Weakness (mild (R>L)) Endocrine: reports: No Symptoms Hematology/Lymphatic: reports: No Symptoms Psychiatric: reports: No Symptoms - Risk Factors Known Risk Factors: Yes: Age, Diabetes Mellitus, Gender, Hypercholesterolemia, Hypertension, Physical Inactivity, Prior [place] /Emb Stroke Vital Signs: Vital Signs Temperature 98.9 F 02/20/17 14:00 Pulse Rate 88 02/20/17 14:00 Respiratory Rate 20 02/20/17 14:00 Blood Pressure 102/53 02/20/17 14:00 O2 Sat by Pulse Oximetry (%) 96 02/20/17 07:29 Constitutional: Yes: Well Nourished, No Distress Eyes: Yes: WNL HENT: Yes: WNL Neck: Yes: WNL Respiratory: Yes: WNL Gastrointestinal: Yes: WNL Renal/: No: Anuria Cardiovascular: Yes: Regular Rate and Rhythm JVD: No Carotid Bruit: No Heart Sounds: Yes: S1, Split S2 Musculoskeletal: Yes: WNL Extremities: Yes: WNL Edema: No Peripheral Pulses WNL: Yes Integumentary: Yes: WNL Neurological: Yes: Weakness Psychiatric: Yes: WNL - Other Data Labs, Other Data: CBC, BMP 02/20/17 05:35 02/20/17 05:35 INR, PTT INR 1.24 (0.82-1.09) H 02/19/17 06:45 Abnormal Lab Results 02/20/17 02/20/17 02/20/17 05:35 05:35 18:00 Hgb 11.5 L Hct 34.8 L BUN 22 H Random Glucose 120 H D Total Protein 6.0 L Albumin 2.8 L TSH 4.12 H Ejection Fraction %: LVEF > or = 40 % Imaging - Results Chest X-ray: Image Reviewed (no active pulmonary disease) MRI: Image Reviewed (4 cm cerebellar infarct; trace petechial blood) EKG: Image Reviewed (NSR; occasional PVCs; LBBB;) Other: Image Reviewed (telemetry: NSR; frequent PVCs, with occasional quadrigeminy) Problem List - Problems (1) Syncope Assessment/Plan: orthostatic VS changes initially, but not in the past 2 days. Elevated BUN, transient elevation of Cr. Avoid dehydration. TNI <0.02 x 2. EKG: normal sinus rhythm; occasional PVCs; LBBB. Telemetry: NSR: frequent PVCs; periods of quadrigeminy. Carotid US: minor plaque; no stenoses. 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 ASA discontinued. Carotid artery US: no significant disease. ECHO: normal LVEF: no mention of thrombus, atrial septal defect, or PFO. EKG: NSR: LBBB, occasional PVCs. Telemetry: NSR; frequent PVCs, at times in quadrigeminy. Follow results of stress test done within the past 1-2 years. TSH. Telemetry. F/u with neurology. Code(s): I63.40 - CEREBRAL INFARCTION DUE TO EMBOLISM OF UNSP CEREBRAL ARTERY (6) LBBB (left bundle branch block) Code(s): I44.7 - LEFT BUNDLE-BRANCH BLOCK, UNSPECIFIED
[2017-02-20] MEDS: ATORVASTATIN CA 40 MG TABLET (FP) PO SCH (21:48)
[2017-02-21] MEDS: INSULIN SLIDING SCALE (NOVOLOG) 1 VIAL SQ SCH ×4 (06:21→21:50)
[2017-02-21] MEDS: INSULIN DETEMIR 100 UNITS/ML MDV SQ SCH ×2 (06:24→21:48)
[2017-02-21] MEDS: ALLOPURINOL 100 MG TABLET (FP) PO SCH (09:31)
[2017-02-21] MEDS: GABAPENTIN 300 MG CAPSULE (FP) PO SCH ×2 (09:31→21:49)
[2017-02-21] MEDS: VALSARTAN 80 MG TABLET (UD) PO SCH (09:31)
[2017-02-21] MEDS: METOPROLOL SUCCINATE 25 MG TAB.SR.24H (FP) PO SCH (09:31)
--- NOTE | 2017-02-21 11:22 | PN ---
Progress Note, Physician Chief Complaint: Pt OOB in chair; asymptomatic. His is at the bedside. History of Present Illness: 76 y/o M (born in the [place]; parents from [place]), with a PMHx of HTN, HLD , DM, congenital bilateral hearing loss, gout, who presents to the ED via EMS s/ p syncopal episode this morning. Patient reports current dizziness. Patients reports that about a week ago the patient had 3 mechanical falls within an hour and hit his head. Patient did not want to go to the ER at that time. Last night, reports patient felt hot to touch. This morning, was helping the patient to the bathroom when he syncopized. Pt says he realized the room was spinning and asked his to help; she kept him from falling and hitting his head. Positive vomiting x1 in ED. Earlier this year, the patient was admitted to a hospital in [place] for low BP and dehydration. Patient denies chest pain, SOB, headache. Denies fever, chills. Denies diarrhea. Pt walks about 4 blocks a few times a week. He denies having any heart history, though he had a stress MIBI in 2001 that reportedly showed "clear" coronary arteries, and another stress test (was taken off the treadmill, and given ? dobutamine) 1-2 years ago. 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 - Current Medication List Current Medications: Active Medications Allopurinol (Zyloprim -) 100 mg PO DAILY [facility] Last Admin: 02/21/17 09:31 Dose: 100 mg Atorvastatin Calcium (Lipitor -) 40 mg PO HS [facility] Last Admin: 02/20/17 21:48 Dose: 40 mg Gabapentin (Neurontin -) 600 mg PO BID [facility] Last Admin: 02/21/17 09:31 Dose: 600 mg Insulin Aspart (Novolog Vial Sliding Scale -) 1 vial SQ ACHS [facility] PRN Reason: Protocol Last Admin: 02/21/17 06:21 Dose: Not Given Insulin Detemir (Levemir Vial) 10 units SQ BID@0700,2200 [facility] Last Admin: 02/21/17 06:24 Dose: 10 units Metoprolol Succinate (Toprol Xl -) 25 mg PO DAILY [facility] Last Admin: 02/21/17 09:31 Dose: 25 mg Valsartan (Diovan -) 80 mg PO DAILY [facility] Last Admin: 02/21/17 09:31 Dose: 80 mg - Objective Vital Signs: Vital Signs Temperature 98.3 F 02/21/17 10:00 Pulse Rate 88 02/21/17 10:00 Respiratory Rate 18 02/21/17 10:00 Blood Pressure 134/56 02/21/17 10:00 O2 Sat by Pulse Oximetry (%) 98 02/21/17 09:00 Constitutional: Yes: Calm Eyes: Yes: WNL HENT: Yes: WNL Neck: Yes: WNL Cardiovascular: Yes: Regular Rate and Rhythm, S2 (split) Respiratory: Yes: WNL Gastrointestinal: Yes: WNL ...Rectal Exam: Yes: Deferred Genitourinary: No: Anuria Musculoskeletal: Yes: WNL Extremities: Yes: WNL Edema: No Peripheral Pulses WNL: Yes Integumentary: Yes: WNL Neurological: Yes: WNL Psychiatric: Yes: WNL Labs: CBC, BMP 02/20/17 05:35 02/20/17 05:35 INR, PTT INR 1.24 (0.82-1.09) H 02/19/17 06:45 Abnormal Lab Results 02/20/17 18:00 TSH 4.12 H - ....Imaging Other: Image Reviewed (telemetry: NSR; frequent isolated PVCs) Problem List - Problems (1) Syncope Assessment/Plan: orthostatic VS changes initially, but not in the past 2 days. Elevated BUN, transient elevation of Cr. Avoid dehydration. TNI <0.02 x 2. EKG: normal sinus rhythm; occasional PVCs; LBBB. Telemetry: NSR: frequent PVCs; periods of quadrigeminy. Carotid US: minor plaque; no stenoses. ECHO: normal LVEF, normal LV size and thickness; trace MR and TR. Pt's daughter, Ashwini, spoke to me by phone. Pt had a stress Persantine MIBI 06/25/2016 in [facility] that was engendered by an earlier finding of intermittent LBBB and 6 beat run of "NSVT". The stress MIBI was reportedly negative for ischemia; await records. He apparently had no syncopal episodes prior to the event that resulted in the present admission. Pt also, per , has a chronic renal condition for which is is to receive no procedures involving "dye" (Cr this admission 1.2-->1.4-->1.2) Will consult Dr. Lyle Ozuna, EP. Addendum: records from [facility] 06/2016 noted Lexiscan stress MIBI that was negative for myocardial ischemia. Dr. Ozuna has seen pt today and states that pt may be followed as an outpatient from EP standpoint. Despite PVCs and reported brief run of NSVT (not seen yet in records), he has been asymptomatic, and the syncopal episode does not appear cardiac in origin; future symptoms may engender an event monitor. (The latter should be strongly considered if origin of CVA remains unclear). 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 ASA discontinued. Carotid artery US: no significant disease. ECHO: normal LVEF: no mention of thrombus, atrial septal defect, or PFO. EKG: NSR: LBBB, occasional PVCs. Telemetry: NSR; frequent PVCs, at times in quadrigeminy. Follow results of stress test done within the past 1-2 years. TSH. Telemetry. F/u with neurology. Code(s): I63.40 - CEREBRAL INFARCTION DUE TO EMBOLISM OF UNSP CEREBRAL ARTERY (6) LBBB (left bundle branch block) Code(s): I44.7 - LEFT BUNDLE-BRANCH BLOCK, UNSPECIFIED
--- NOTE | 2017-02-21 12:19 | PN ---
Progress Note (short form) - Note Progress Note: currently asymptomatic. denies CP, SOB, fever, chills, N/V/C/D Current Medications Generic Name Dose Route Start Last Admin Trade Name Guy PRN Reason Stop Dose Admin Allopurinol 100 mg 02/19/17 10:00 02/21/17 09:31 Zyloprim - PO 100 mg DAILY [facility] Administration Atorvastatin Calcium 40 mg 02/18/17 22:00 02/20/17 21:48 Lipitor - PO 40 mg HS [facility] Administration Gabapentin 600 mg 02/18/17 22:00 02/21/17 09:31 Neurontin - PO 600 mg BID [facility] Administration Insulin Aspart 1 vial 02/18/17 16:30 02/21/17 12:16 Novolog Vial Sliding Scale - SQ 6 units ACHS [facility] Administration Protocol Insulin Detemir 10 units 02/18/17 22:00 02/21/17 06:24 Levemir Vial SQ 10 units BID@0700,2200 [facility] Administration Metoprolol Succinate 25 mg 02/19/17 10:00 02/21/17 09:31 Toprol Xl - PO 25 mg DAILY [facility] Administration Valsartan 80 mg 02/18/17 14:15 02/21/17 09:31 Diovan - PO 80 mg DAILY [facility] Administration Last Vital Signs Temp Pulse Resp BP Pulse Ox 98.3 F 88 18 134/56 98 02/21/17 10:00 02/21/17 10:00 02/21/17 10:00 02/21/17 10:00 02/21/17 09:00 General NAD, PILOT POINT CV S1 S2 RRR no murmur/rub/gallop Lungs CTA B/L no wheezing/rales/rhonchi Abdomen soft NT/ND Extremities no pedal edema Neuro CN grossly intact. sensation grossly intact. strength equal in all 4 extremities. no pronator drift, no dysmetria no dysdakinesia +ataxic gait Assessment and Plan: 76 year old with a significant past medical history of hypertension, hyperlipidemia and diabetes mellitus came to the ER with RLE weakness and dizzyness was found to have an acute R cerebellar infarct with hemorrhagic conversion. 1. Acute R cerebellar infarct- no neurological deficits other than sight ataxia. repeat head CT shows no change in 4 x1.3 cm hemorrhagic infarct. as per neurosurgery no intervention. carotid doppler negative. echo WNL. will need 5- 7days of monitoring. will cont to hold asa. on statin. PT and speech therapy. tight BP control. 2. PVC on monitor- pt having multiple PVC. cardio and EP evaluation. EKG +LBBB ( old per ) 3. HTN- controlled. cont arb, metoprolol 4. DM- hold oral agents. cont iss, bgm 5. DVT ppx- SCD. hold pharmacologic intervention 6. provided letter for [employer] that pt is not medically safe for pt to fly at this time. Plan d/w present at bedside. all questions answered. verbalized agreement with plan Visit type - Emergency Visit Emergency Visit: Yes ED Registration Date: 02/19/17 Care time: The patient presented to the Emergency Department on the above date and was hospitalized for further evaluation of their emergent condition. - New Patient This patient is new to me today: No - Critical Care Critical Care patient: No - Discharge Referral Referred to [facility] Med P.C.: No
--- NOTE | 2017-02-21 15:57 | CON.CARD ---
Consult Consult Specialty:: EP Referred by:: Dr. Contreras Reason for Consultation:: LBBB, Syncope - History of Present Illness Chief Complaint: s/p Fall History of Present Illness: Mr. Huber is a 76-year-old male with a past medical history of hypertension , hyperlipidemia, diabetes, congenital bilateral hearing loss who presented to the emergency room status post a fall. He was noted to have a left bundle branch block. Cardiac enzymes have been negative. Prior to his presenting complaint, the patient had fallen 3 times at one of their children's homes in [place]. The patient was seen and examined with his present. They came from [place] approximately one week ago to spend some time with their children. He was walking with his son in the driveway approximately one week ago when he tripped and fell 3 separate times. He hurt his knee in the process. They then came up to this area to spend time with another child. Prior to admission, the patient was walking to the bathroom to brush his teeth when he felt that his legs gave way and he collapsed to the floor. In each of these encounters, the patient and deny the patient experiencing any dizziness, lightheadedness, syncope or loss of consciousness. Telemetry monitoring has demonstrated a sinus rhythm with a left bundle branch block and without any significant pauses or arrhythmias. In June 2016, the patient had presented to a hospital in [place] secondary to a low blood pressure. He had a stress test at that time that was without ischemia and an echocardiogram that demonstrated an ejection fraction of 60-65% without significant valvular abnormalities. He follows with a teletype operator in [place]. He reportedly had 6 beats of nonsustained VT on the monitor at that time. He denies any chest pain, dyspnea or palpitations. - History Source History Provided By: Patient, Family Member, Medical Record - Past Medical History INSPECTOR GENERAL: Yes: Syncope, Other (? brain aneurysm) Cardio/Vascular: Yes: HTN Pulmonary: No: Asthma, COPD Psych: No: Anxiety, Depression - Past Surgical History Additional Surgical History: angiography of the brain in 2001 - Alcohol/Substance Use Hx Alcohol Use: No - Smoking History Smoking history: Never smoked - Social History Usual Living Arrangement: With Spouse Home Medications - Allergies Allergies/Adverse Reactions: Allergies Allergy/AdvReac Type Severity Reaction Status Date / Time No Known Allergies Allergy Verified 02/18/17 09:01 - Home Medications Home Medications: Ambulatory Orders Allopurinol [Zyloprim -] 100 mg PO DAILY 02/18/17 Alogliptin Benzoate [Alogliptin] 12.5 mg PO DAILY 02/18/17 Gabapentin [Gralise] 600 mg PO BID 02/18/17 Glimepiride [Amaryl -] 1 mg PO DAILY 02/18/17 Insulin Glargine,Hum.rec.anlog [Toujeo Solostar] 16 unit SQ DAILY 02/18/17 Metoprolol Succinate [Toprol Xl -] 25 mg PO DAILY 02/18/17 Pioglitazone HCl [Actos] 30 mg PO DAILY 02/18/17 Simvastatin [Zocor -] 40 mg PO HS 02/18/17 Valsartan [Diovan] 80 mg PO DAILY 02/18/17 Family Disease History - Family Disease History Family Disease History: Heart Disease: Father, Mother ("my parents had heart conditions when they both were very old") Review of Systems - Review of Systems Constitutional: denies: Chills, Fever HENT: reports: Hearing Loss. denies: Epistaxis Cardiovascular: denies: Chest Pain, Edema, Palpitations, Shortness of Breath Respiratory: denies: SOB on Exertion Gastrointestinal: denies: Abdominal Pain, Nausea, Vomiting Genitourinary: denies: Dysuria Hematology/Lymphatic: denies: Excessive Bleeding Vital Signs: Vital Signs Temperature 99.1 F 02/21/17 14:00 Pulse Rate 87 02/21/17 14:00 Respiratory Rate 20 02/21/17 14:00 Blood Pressure 123/76 02/21/17 14:00 O2 Sat by Pulse Oximetry (%) 98 02/21/17 09:00 Constitutional: Yes: Well Nourished Neck: Yes: WNL Respiratory: Yes: WNL Gastrointestinal: Yes: WNL Cardiovascular: Yes: WNL, Regular Rate and Rhythm JVD: No PMI: Non-Displaced Edema: No Peripheral Pulses WNL: Yes Neurological: Yes: Alert, Oriented Psychiatric: Yes: Alert, Oriented - Other Data Labs, Other Data: CBC, BMP 02/20/17 05:35 02/20/17 05:35 INR, PTT INR 1.24 (0.82-1.09) H 02/19/17 06:45 Echo: Report Reviewed Ejection Fraction %: LVEF > or = 40 % Imaging - Results EKG: Image Reviewed Assessment/Plan 02/21/17: JVD EPS: no significant findings on telemetry. cardiac enzymes negative. "syncope" appears to be multiple episodes of mechanical falls as pt and describe it. known prior normal LVEF with negative stress test. LBBB is not new and has been present since 06/2016 per the . reportedly had 6 beats of nsvt in [place], no significant findings here on telemetry. - no further arrhythmia testing at this time - keep k 4-4.5, mg 2-2.5 - can d/c telemetry - care as per cardiology - c/w Dr. Contreras Thank you for allowing me to participate in the care of this patient. Please call with any questions. Will sign off for now but available upon request. Please call if needed. Lyle Ozuna MD [phone]
--- NOTE | 2017-02-21 17:05 | PN ---
Progress Note (short form) - Note Progress Note: 76 year old male history of dm, htn hyperlipidemia. He lives in [place] and visiting [place] and recently were in [place]. He felt that his leg were giving out and he passed out. He was did not complain of hitting his head. He denies any weakness, dysphagia , dysarthria or diplopia. Patient also complain of right leg edema and knee swelling after a fall. He has history of low back pain but he denies any worsening of back pain recently. His felt that he passed out and he was confused whole morning and now after three hours being in hospital . he had mri of brain showed right cerebellar stroke and small petechial hemorrhage was seen . no new complain , carotid ultrasound was unremarkable. he wanted to be discharged and go stay with her daughter at [place]. PAST MEDICAL HISTORY: Hypertension Hyperlipidemia IDDM Neurological Examination Alert and oriented x 3 he is have hearing difficulty eomi and no face asymmetry , pupils are reactive there is right knee swelling seen there is pain on moving right knee and limited exam but no obvious weakness no sensory loss there is mild dysmetria seen on right upper extremity ( ftn testing reflex are diminished generalized Assessment- Right cerebellar stroke with small petechial hemrrhage, bp under control and no evidence of raised ICT , carotid ultrasound is normal Plan -- aspirin can be resumed on wednesday or ,( two days after being discharged) - At this time patient has been discharged tomorrow, at persistent insistence of family and patient . Patient is advise to be very cautious and come to nearest ED if any new headache, change in mental status and vomiting. - asiprin can be resumed on wednesday or - [employer] note appreciated. continue to follow ,please feel free to call me if you have any question Marshall Kingston MD
[2017-02-21] MEDS ORDERED: INSULIN (NOVOLOG) ASPART 100 UNITS/ML 10ML VIAL ONE (18:00)
[2017-02-21] MEDS: ATORVASTATIN CA 40 MG TABLET (FP) PO SCH (21:49)
[2017-02-22] MEDS: INSULIN DETEMIR 100 UNITS/ML MDV SQ SCH (06:28)
[2017-02-22] MEDS: INSULIN SLIDING SCALE (NOVOLOG) 1 VIAL SQ SCH ×2 (06:28→12:25)
--- NOTE | 2017-02-22 08:00 | PN ---
Physical Exam: SUBJECTIVE: Patient seen and examined OBJECTIVE: Vital Signs Period Temp Pulse Resp BP Sys/Baker Pulse Ox Last 24 Hr 97.9 F-99.2 F 74-89 18-20 120-141/51-76 96-98 GENERAL: The patient is awake, alert, and fully oriented, in no acute distress. HEAD: Normal with no signs of trauma. EYES: PERRL, extraocular movements intact, sclera anicteric, conjunctiva clear. No ptosis. ENT: Ears normal, nares patent, oropharynx clear without exudates, moist mucous membranes. NECK: Trachea midline, full range of motion, supple. LUNGS: Breath sounds equal, clear to auscultation bilaterally, no wheezes, no crackles, no accessory muscle use. HEART: Regular rate and rhythm, S1, S2 without murmur, rub or gallop. ABDOMEN: Soft, nontender, nondistended, normoactive bowel sounds, no guarding, no rebound, no hepatosplenomegaly, no masses. EXTREMITIES: 2+ pulses, warm, well-perfused, no edema. NEUROLOGICAL: Cranial nerves II through XII grossly intact. Normal speech, gait not observed. PSYCH: Normal mood, normal affect. SKIN: Warm, dry, normal turgor, no rashes or lesions noted Laboratory Results - last 24 hr 02/20/17 02/21/17 02/21/17 18:00 11:48 16:57 POC Glucometer 269 215 Hemoglobin A1c % 8.0 H 02/21/17 02/22/17 21:43 05:42 POC Glucometer 271 155 Hemoglobin A1c % Active Medications Generic Name Dose Route Start Last Admin Trade Name Guy PRN Reason Stop Dose Admin Allopurinol 100 mg 02/19/17 10:00 02/21/17 09:31 Zyloprim - PO 100 mg DAILY [facility] Administration Atorvastatin Calcium 40 mg 02/18/17 22:00 02/21/17 21:49 Lipitor - PO 40 mg HS [facility] Administration Gabapentin 600 mg 02/18/17 22:00 02/21/17 21:49 Neurontin - PO 600 mg BID [facility] Administration Insulin Aspart 1 vial 02/18/17 16:30 02/22/17 06:28 Novolog Vial Sliding Scale - SQ 2 units ACHS [facility] Administration Protocol Insulin Detemir 10 units 02/18/17 22:00 02/22/17 06:28 Levemir Vial SQ 10 units BID@0700,2200 [facility] Administration Metoprolol Succinate 25 mg 02/19/17 10:00 02/21/17 09:31 Toprol Xl - PO 25 mg DAILY [facility] Administration Valsartan 80 mg 02/18/17 14:15 02/21/17 09:31 Diovan - PO 80 mg DAILY [facility] Administration ASSESSMENT/PLAN:
[2017-02-22 08:11] VITALS: BP 143/70; PULSE 98; TEMP 98.7
[2017-02-22] MEDS: ALLOPURINOL 100 MG TABLET (FP) PO SCH (09:15)
[2017-02-22] MEDS: METOPROLOL SUCCINATE 25 MG TAB.SR.24H (FP) PO SCH (09:15)
[2017-02-22] MEDS: VALSARTAN 80 MG TABLET (UD) PO SCH (09:15)
[2017-02-22] MEDS: GABAPENTIN 300 MG CAPSULE (FP) PO SCH (09:15)
--- NOTE | 2017-02-22 10:16 | DS ---
Physical Exam: SUBJECTIVE: Patient seen and examined. No n/v, fever or chills overnight. Denies KNOWLES, SOB, CP. C/o mild, non-radiating pain behind L knee. OBJECTIVE: Vital Signs Period Temp Pulse Resp BP Sys/Baekr Pulse Ox Last 24 Hr 97.9 F-99.2 F 74-98 18-20 120-143/51-76 96-98 PHYSICAL EXAM GENERAL: aaox3, nad HEAD: Normal with no signs of trauma. EYES: sclera anicteric, conjunctiva clear ENT: B/L hearing aids, moist mucous membranes. LUNGS: CTAB, no wheezes, crackles, or rhonchi HEART: rrr, normal S1/S2, no murmur, rub or gallop ABDOMEN: Soft, ntnd, normoactive bowel sounds LOWER EXTR: 2+ pulses, warm, well-perfused, no edema. NEUROLOGICAL: CN II through XII grossly intact, not formally tested. Normal speech. No dysmetria or dysdiadokinesis. Strength: 5/5 in all extremities except 4/5 LLE. LABS Laboratory Results - last 24 hr 02/20/17 02/21/17 02/21/17 18:00 11:48 16:57 POC Glucometer 269 215 Hemoglobin A1c % 8.0 H 02/21/17 02/22/17 21:43 05:42 POC Glucometer 271 155 Hemoglobin A1c % HOSPITAL COURSE: Date of Admission:02/19/17 Date of Discharge: 02/22/17 Mr. Huber is a 76yo man with PMH of HTN, HLD, IDDM, congenital b/l hearing loss who presented with RLE weakness and 3x mechanical falls and was found to have acute R cerebellar infarct (4 x 1.3cm) with trace petechial hemorrhage on MRI (02/19). Follow-up head CT on 02/20 revealed stable 4cm R cerebellar infarct. Subsequent w/u included B/L carotid U/S which found minor plaques, but no stenoses. ECHO (02/18):normal LVEF, normal LV size and thickness; trace MR and TR. Telemetry monitoring showed NSR, frequent PVCs, periods of quadrigeminy. EKG: NSR, occasional PVCs, LBBB (which is old per ). Cardiac enzymes have been negative (TNI <0.02x2). SINK CUTTER evaluation found no restrictions. EP (Dr. Ozuna) evaluated pt with no interventions required at this time. HTN has been well controlled on his home medications. Minutes to complete discharge: 45 Discharge Summary Reason For Visit: VERTIGO Current Active Problems Diabetes (Acute) Embolic cerebral infarction (Acute) HTN (hypertension) (Acute) Hyperlipidemia (Acute) LBBB (left bundle branch block) (Acute) Syncope (Acute) Vertigo (Acute) Condition: Stable - Instructions Diet, Activity, Other Instructions: You were admitted in the hospital for stroke (acute R cerebellar stroke with small bleeding). Please return to the hospital if you have headache or falls, etc. Please resume your current home medications with the following changes: please start taking Aspirin 81mg by mouth daily in two days (wed, 02/24). Your medication for high cholesterol was switched from simvastatin (Zocor) to atorvastatin (Lipitor). Please follow up with Neurology within week. Please follow-up with Cardiology either locally within 1 week or when you return to [place]. You may resume your regular diet and daily activities. Referrals: Marshall Kingston MD [Staff Physician] - Jonathan Contreras MD [Staff Physician] - Disposition: HOME - Home Medications Comprehensive Discharge Medication List: Ambulatory Orders Allopurinol [Zyloprim -] 100 mg PO DAILY 02/18/17 Alogliptin Benzoate [Alogliptin] 12.5 mg PO DAILY 02/18/17 Gabapentin [Gralise] 600 mg PO BID 02/18/17 Glimepiride [Amaryl -] 1 mg PO DAILY 02/18/17 Insulin Glargine,Hum.rec.anlog [Tousrinatho Solostar] 16 unit SQ DAILY 02/18/17 Metoprolol Succinate [Toprol Xl -] 25 mg PO DAILY 02/18/17 Pioglitazone HCl [Actos] 30 mg PO DAILY 02/18/17 Simvastatin [Zocor -] 40 mg PO HS 02/18/17 Valsartan [Diovan] 80 mg PO DAILY 02/18/17 This patient is new to me today: Yes Date on this admission: 02/22/17 Emergency Visit: No Critical Care patient: No - Discharge Referral Referred to [facility] Med P.C.: No
--- NOTE | 2017-02-22 12:29 | PN ---
Teaching Attending Note Name of Resident: Asuncion Phoenix ATTENDING PHYSICIAN STATEMENT I saw and evaluated the patient. I reviewed the resident's note and discussed the case with the resident. I agree with the resident's findings and plan as documented. SUBJECTIVE:asymptomatic. denies Cp, SOB, fever, chills, N/V/C/D, worsening weakness or worsening gait OBJECTIVE: Last Vital Signs Temp Pulse Resp BP Pulse Ox 98.7 F 98 H 20 143/70 98 02/22/17 08:09 02/22/17 08:09 02/22/17 08:11 02/22/17 08:09 02/22/17 08:11 General NAD, KIVALINA Assessment and Plan: 76 year old with a significant past medical history of hypertension, hyperlipidemia and diabetes mellitus came to the ER with RLE weakness and dizzyness was found to have an acute R cerebellar infarct with hemorrhagic conversion. 1. Acute R cerebellar infarct- no neurological deficits other than sight ataxia. repeat head CT shows no change in 4 x1.3 cm hemorrhagic infarct. as per neurosurgery no intervention. carotid doppler negative. echo WNL. will need 5- 7days of monitoring. can re-start asa in 48H. on statin. PT and speech therapy. tight BP control. 2. PVC on monitor- pt having multiple PVC. EP evaluated with no interventions required at this time. can f/u with own EP in [place]. EKG +LBBB (old per ) 3. HTN- controlled. cont arb, metoprolol 4. DM- re-start oral agents. cont iss, bgm 5. DVT ppx- SCD. hold pharmacologic intervention 6. d/c home. plan d/w present at bedside, all questions answered, verbalized understanding and agreement
--- NOTE | 2017-02-22 12:30 | PN ---
Progress Note (short form) - Note Progress Note: 76 year old male history of dm, htn hyperlipidemia. He lives in [place] and visiting [place] and recently were in [place]. He felt that his leg were giving out and he passed out. He was did not complain of hitting his head. He denies any weakness, dysphagia , dysarthria or diplopia. Patient also complain of right leg edema and knee swelling after a fall. He has history of low back pain but he denies any worsening of back pain recently. His felt that he passed out and he was confused whole morning and now after three hours being in hospital . he had mri of brain showed right cerebellar stroke and small petechial hemorrhage was seen . 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 Patient is advise to be very cautious and come to nearest ED if any new headache, change in mental status and vomiting. - Marshall Kingston MD
--- NOTE | 2017-02-22 12:54 | PN ---
Progress Note, Physician History of Present Illness: 76 y/o M (born in the [place]; parents from [place]), with a PMHx of HTN, HLD , DM, congenital bilateral hearing loss, gout, who presents to the ED via EMS s/ p syncopal episode this morning. Patient reports current dizziness. Patients reports that about a week ago the patient had 3 mechanical falls within an hour and hit his head. Patient did not want to go to the ER at that time. Last night, reports patient felt hot to touch. This morning, was helping the patient to the bathroom when he syncopized. Pt says he realized the room was spinning and asked his to help; she kept him from falling and hitting his head. Positive vomiting x1 in ED. Earlier this year, the patient was admitted to a hospital in [place] for low BP and dehydration. Patient denies chest pain, SOB, headache. Denies fever, chills. Denies diarrhea. Pt walks about 4 blocks a few times a week. He denies having any heart history, though he had a stress MIBI in 2001 that reportedly showed "clear" coronary arteries, and another stress test (was taken off the treadmill, and given ? dobutamine) 1-2 years ago. 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 - Current Medication List Current Medications: Active Medications Allopurinol (Zyloprim -) 100 mg PO DAILY [facility] Last Admin: 02/22/17 09:15 Dose: 100 mg Atorvastatin Calcium (Lipitor -) 40 mg PO HS [facility] Last Admin: 02/21/17 21:49 Dose: 40 mg Gabapentin (Neurontin -) 600 mg PO BID [facility] Last Admin: 02/22/17 09:15 Dose: 600 mg Insulin Aspart (Novolog Vial Sliding Scale -) 1 vial SQ ACHS [facility] PRN Reason: Protocol Last Admin: 02/22/17 12:25 Dose: 6 units Insulin Detemir (Levemir Vial) 10 units SQ BID@0700,2200 [facility] Last Admin: 02/22/17 06:28 Dose: 10 units Metoprolol Succinate (Toprol Xl -) 25 mg PO DAILY [facility] Last Admin: 02/22/17 09:15 Dose: 25 mg Valsartan (Diovan -) 80 mg PO DAILY [facility] Last Admin: 02/22/17 09:15 Dose: 80 mg - Objective Vital Signs: Vital Signs Temperature 98.7 F 02/22/17 08:09 Pulse Rate 98 H 02/22/17 08:09 Respiratory Rate 20 02/22/17 08:11 Blood Pressure 143/70 02/22/17 08:09 O2 Sat by Pulse Oximetry (%) 98 02/22/17 08:11 Eyes: Yes: WNL, Conjunctiva Clear, EOM Intact HENT: Yes: WNL, Atraumatic, Normocephalic Neck: Yes: WNL, Supple, Trachea Midline Cardiovascular: Yes: WNL, Regular Rate and Rhythm Respiratory: Yes: WNL, Regular, CTA Bilaterally Gastrointestinal: Yes: WNL, Normal Bowel Sounds Genitourinary: Yes: WNL Musculoskeletal: Yes: WNL Extremities: Yes: WNL Edema: No Integumentary: Yes: WNL Neurological: Yes: WNL, Alert, Oriented ...Motor Strength: WNL Psychiatric: Yes: WNL Labs: CBC, BMP 02/20/17 05:35 02/20/17 05:35 INR, PTT INR 1.24 (0.82-1.09) H 02/19/17 06:45 Assessment/Plan (1) Syncope Assessment/Plan: orthostatic VS changes initially, but not in the past 2 days. Elevated BUN, transient elevation of Cr. Avoid dehydration. TNI <0.02 x 2. EKG: normal sinus rhythm; occasional PVCs; LBBB. Telemetry: NSR: frequent PVCs; periods of quadrigeminy. Carotid US: minor plaque; no stenoses. ECHO: normal LVEF, normal LV size and thickness; trace MR and TR. Pt's daughter, Ashwini, spoke to me by phone. Pt had a stress Persantine MIBI 06/25/2016 in [facility] that was engendered by an earlier finding of intermittent LBBB and 6 beat run of "NSVT". The stress MIBI was reportedly negative for ischemia; await records. He apparently had no syncopal episodes prior to the event that resulted in the present admission. Pt also, per , has a chronic renal condition for which is is to receive no procedures involving "dye" (Cr this admission 1.2-->1.4-->1.2) Will consult Dr. Lyle Ozuna EP. Addendum: records from [facility] 06/2016 noted Lexiscan stress MIBI that was negative for myocardial ischemia. Dr. Ozuna has seen pt today and states that pt may be followed as an outpatient from EP standpoint. Despite PVCs and reported brief run of NSVT (not seen yet in records), he has been asymptomatic, and the syncopal episode does not appear cardiac in origin; future symptoms may engender an event monitor. (The latter should be strongly considered if origin of CVA remains unclear). 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 ASA discontinued. Carotid artery US: no significant disease. ECHO: normal LVEF: no mention of thrombus, atrial septal defect, or PFO. EKG: NSR: LBBB, occasional PVCs. Telemetry: NSR; frequent PVCs, at times in quadrigeminy. Follow results of stress test done within the past 1-2 years. TSH. Telemetry. F/u with neurology. Code(s): I63.40 - CEREBRAL INFARCTION DUE TO EMBOLISM OF UNSP CEREBRAL ARTERY (6) LBBB (left bundle branch block) Code(s): I44.7 - LEFT BUNDLE-BRANCH BLOCK, UNSPECIFIED
== END 2017-02-22 13:17 | disposition home or self-care (01) | DRG 64 ==
LOC: JER 08:47 → JERBED 11:09 → J4W 20:22 → OBSVTOIN 02-19 14:18
PROVIDERS: ADMIT Internal Medicine; ATTEND Internal Medicine
DX: I63.9 Cerebral infarction, unspecified (principal); I61.8 Other nontraumatic intracerebral hemorrhage; I10 Essential (primary) hypertension; E11.9 Type 2 diabetes mellitus without complications; E78.5 Hyperlipidemia, unspecified; I44.7 Left bundle-branch block, unspecified; R55 Syncope and collapse; R42 Dizziness and giddiness; Z79.4 Long term (current) use of insulin; I49.3 Ventricular premature depolarization
CPT/HCPCS: 36415; 70450-TC; 70551-TC; 71010-TC; 73562-TC-RT; 73590-TC-RT; 73610-TC-RT; 73630-TC-RT; 80053; 80061; 82550; 83036; 83605; 83721; 83735; 83880; 84100; 84443; 84484; 85025; 85610; 85730; 87040; 90688; 93005; 93010; 93306-TC; 93880-TC; 93970-TC; 97116-GP; 97161-GP; 99285-25; G0378; J1644